=== PATIENT | female | born 1955 | race Hispanic/Latino ===

== ENCOUNTER 2017-09-15 05:47 | Day surgery (SDC) | payer MEDICAID ==
[~2017-09-15] VITALS: Ht 149.9 cm; Wt 75.7 kg
[~2017-09-15 05:47] MED LIST: LOSA1TAB42 PO; TRAM50TA4 PO
[2017-09-15] MEDS ORDERED: SODIUM CHLORIDE 0.9% 1000ML 1,000 ML IV ONE (05:59)
[2017-09-15 06:45] VITALS: BP 125/77
[2017-10-16] MEDS ORDERED: DICY10CA13 PO (15:51)
== END 2017-09-15 09:23 ==
LOC: DAH 05:47 → ENDO 05:47
PROVIDERS: ATTEND Internal Medicine
DX: K21.9 Gastro-esophageal reflux disease without esophagitis (principal); K29.60 Other gastritis without bleeding; K57.30 Diverticulosis of large intestine without perforation or abscess without bleeding; Z86.010 Personal history of colon polyps; I10 Essential (primary) hypertension; E11.9 Type 2 diabetes mellitus without complications; Z98.890 Other specified postprocedural states; Z90.710 Acquired absence of both cervix and uterus; Z82.49 Family history of ischemic heart disease and other diseases of the circulatory system; Z68.33 Body mass index [BMI] 33.0-33.9, adult
CPT/HCPCS: 43239; 82948; 88305; 88342; A4606; J7030

== ENCOUNTER 2017-10-18 06:51 | Day surgery (SDC) | payer MEDICAID ==
[~2017-10-18] VITALS: Ht 152.4 cm; Wt 75.3 kg
[~2017-10-18 06:51] MED LIST changes: +DICY10CA13 PO; +SODIUM CHLORIDE 0.9% 1000ML 1,000 ML IV ONE
[2017-10-18 07:25] VITALS: BP 147/73
[2017-10-18] MEDS ORDERED: PROPOFOL 10 MG/ML 20ML VIAL IV ONE (08:15)
== END 2017-10-18 09:04 ==
LOC: DAH 06:51
PROVIDERS: ATTEND Internal Medicine Gastroenterology
DX: D12.3 Benign neoplasm of transverse colon (principal); K63.5 Polyp of colon; K57.30 Diverticulosis of large intestine without perforation or abscess without bleeding; K21.9 Gastro-esophageal reflux disease without esophagitis; I10 Essential (primary) hypertension; Z86.010 Personal history of colon polyps; E11.9 Type 2 diabetes mellitus without complications; Z98.890 Other specified postprocedural states; Z90.710 Acquired absence of both cervix and uterus; Z68.33 Body mass index [BMI] 33.0-33.9, adult
CPT/HCPCS: 45380; 45385; 82948 ×2; 88305; A4606; J2704; J7030

== ENCOUNTER → 2019-10-15 | Outpatient (CLI) | payer MEDICAID ==
[~2019-10-15] MED LIST changes: -SODIUM CHLORIDE 0.9% 1000ML 1,000 ML IV ONE
== END | disposition home or self-care (01) ==
LOC: SHCH 09:37
PROVIDERS: ATTEND Internal Medicine Cardiovascular Disease
DX: R07.9 Chest pain, unspecified (principal)
CPT/HCPCS: 93306

== ENCOUNTER → 2020-03-10 | Outpatient (CLI) | payer MEDICAID | END | disposition home or self-care (01) | LOC: OIH 12:51 | PROVIDERS: ATTEND Family Medicine | DX: S39.92XA Unspecified injury of lower back, initial encounter (principal); M25.78 Osteophyte, vertebrae; X58.XXXA Exposure to other specified factors, initial encounter; Y93.89 Activity, other specified; Y92.89 Other specified places as the place of occurrence of the external cause; Y99.8 Other external cause status | CPT/HCPCS: 72100; 72220 ==

== ENCOUNTER → 2020-08-21 | Outpatient (CLI) | payer MEDICAID | END | disposition home or self-care (01) | LOC: SLP 19:57 | PROVIDERS: ATTEND Internal Medicine Cardiovascular Disease | DX: G47.33 Obstructive sleep apnea (adult) (pediatric) (principal); R00.1 Bradycardia, unspecified; R07.9 Chest pain, unspecified | CPT/HCPCS: 95810 ==

== ENCOUNTER → 2020-09-15 | Outpatient (CLI) | payer OTHER | END | disposition home or self-care (01) | LOC: RAH 12:42 | PROVIDERS: ATTEND Internal Medicine Cardiovascular Disease | DX: Z13.6 Encounter for screening for cardiovascular disorders (principal); I51.5 Myocardial degeneration | CPT/HCPCS: 75571 ==

== ENCOUNTER → 2020-11-03 | Outpatient (CLI) | payer MEDICAID | END | disposition home or self-care (01) | LOC: SLP 20:42 | PROVIDERS: ATTEND Internal Medicine Cardiovascular Disease | DX: G47.33 Obstructive sleep apnea (adult) (pediatric) (principal); R00.1 Bradycardia, unspecified; R07.9 Chest pain, unspecified | CPT/HCPCS: 95811 ==

== ENCOUNTER → 2021-01-27 | Outpatient (CLI) | payer MEDICAID | END | disposition home or self-care (01) | LOC: RAH 10:24 | PROVIDERS: ATTEND Internal Medicine Gastroenterology | DX: R10.10 Upper abdominal pain, unspecified (principal); R68.81 Early satiety; R11.0 Nausea | CPT/HCPCS: 78264; A9541 ==

== ENCOUNTER → 2022-04-04 | Outpatient (CLI) | payer MEDICAID ==
[~2022-04-04] VITALS: Ht 152.4 cm; Wt 78.5 kg
[~2022-04-04] MED LIST changes: +REGADENOSON 0.4 MG/5 ML PF SYG IVP SCH
== END | disposition home or self-care (01) ==
LOC: OIH 08:20
PROVIDERS: ATTEND Internal Medicine Cardiovascular Disease
DX: I25.119 Atherosclerotic heart disease of native coronary artery with unspecified angina pectoris (principal); R06.00 Dyspnea, unspecified
CPT/HCPCS: 78452; 96374; 93017; J2785; A9500 ×2

== ENCOUNTER → 2023-06-15 | Outpatient (CLI) | payer MEDICARE, MEDICAID ==
[~2023-06-15] MED LIST changes: +DICY-20 PO; -DICY10CA13 PO; -REGADENOSON 0.4 MG/5 ML PF SYG IVP SCH
== END | disposition home or self-care (01) ==
LOC: RAH 10:37
PROVIDERS: ATTEND Internal Medicine Gastroenterology
DX: R10.10 Upper abdominal pain, unspecified (principal); R11.0 Nausea; R68.81 Early satiety
CPT/HCPCS: 78264; A9541

== ENCOUNTER → 2024-04-09 | Outpatient (CLI) | payer MEDICARE ==
[~2024-04-09] MED LIST changes: -DICY-20 PO; +DICY10CA2 PO
== END | disposition home or self-care (01) ==
LOC: RAH 14:39
PROVIDERS: ATTEND Internal Medicine
DX: R59.1 Generalized enlarged lymph nodes (principal); E03.9 Hypothyroidism, unspecified
CPT/HCPCS: 76536

== ENCOUNTER → 2024-04-10 | Outpatient (CLI) | payer MEDICARE | END | disposition home or self-care (01) | LOC: RAH 12:33 | PROVIDERS: ATTEND Student in an Organized Health Care Education/Training Program | DX: K43.9 Ventral hernia without obstruction or gangrene (principal); I70.90 Unspecified atherosclerosis; M47.815 Spondylosis without myelopathy or radiculopathy, thoracolumbar region | CPT/HCPCS: 74176 ==

== ENCOUNTER → 2024-07-18 | Outpatient (CLI) | payer MEDICARE ==
--- NOTE | 2024-07-18 13:55 | HMCIMG ---
US SOFT TISSUE UPPER BACK REASON: benign lipomatous neoplasm of skin COMPARISON: None TECHNIQUE: Limited ultrasound was performed in the right upper back at the site of palpable abnormality. FINDINGS: There is a well-circumscribed 1.1 x 4.2 x 4.8 cm subcutaneous mass. Sonographic appearance is typical of a lipoma. Exam is otherwise unremarkable. IMPRESSION: 1. Mass in the left upper back has sonographic appearance typical of a lipoma.
--- NOTE | 2024-07-18 15:17 | HMCIMG ---
ANKLE 2VWS RT REASON: ANKLE PAIN RIGHT TECHNIQUE: 2 views were obtained. FINDINGS: There is been previous fusion of the tibiotalar joint. There are hardware pins in the talus and calcaneus. Tarsal bones appear intact. There is marked osteoarthritis of the tibiotalar joint space. There are no fractures. Soft tissues appear unremarkable. IMPRESSION: 1. Previous surgical fusion of the talus and calcaneus. 2. 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
== END | disposition home or self-care (01) ==
LOC: RAH 13:00
PROVIDERS: ATTEND Internal Medicine
DX: M19.071 Primary osteoarthritis, right ankle and foot (principal); D17.1 Benign lipomatous neoplasm of skin and subcutaneous tissue of trunk; M25.571 Pain in right ankle and joints of right foot; G14 Postpolio syndrome; M25.871 Other specified joint disorders, right ankle and foot; Z98.890 Other specified postprocedural states; R22.2 Localized swelling, mass and lump, trunk
CPT/HCPCS: 73600; 76604

== ENCOUNTER → 2025-03-18 | Outpatient (CLI) | payer MEDICARE ==
[~2025-03-18] MED LIST changes: +DICY-20 PO; -DICY10CA2 PO; +IOHEXOL 350 MG/ML 100ML INFUS..BTL IV ONE
--- NOTE | 2025-03-21 09:10 | CARDIOLOGY ---
RAD REPORT: CORNARY CT ANGIO RADIOLOGY REPORT: CORONARY CT ANGIOGRAPHY DATE: Mar 21, 2025 QUALITY: Excellent CLINICAL HISTORY AND INDICATION: [ chest pain ] TECHNIQUE: After obtaining a preliminary [facility] image, contrast imaging performed on an [employer] [id number] scanner. A dedicated, limited window, coronary imaging protocol was used, with single breath-hold, retrospective ECG gating, and automated arrhythmia rejection. 100 cc of low osmolar contrast agent: Omnipaque 350 was delivered via a 18-gauge IV catheter in the right antecubital fossa, using a power injector and followed by 60 cc of normal saline bolus as a chaser. Collimated images were reformatted at 0.5 mm intervals, and sent to an offline independent workstation for interpretation, using 3D anatomic reconstructions: Curved multiplanar reconstructions, maximum intensity projections, and multiplanar imaging. No metoprolol was administered prior to scanning due to low baseline heart rate. No SL nitroglycerin was given. CORONARY ARTERY DESCRIPTIONS: The coronary arteries arise in normal position. Left main coronary artery: Normal caliber vessel that trifurcates into the LAD, ramus and LCx. No stenosis. Left anterior descending coronary artery: Normal caliber vessel and gives rise to diagonal and septal branches. There is calcified plaque in the proximal LAD with 20-30% stenosis. Ramus intermedius artery: Normal caliber, no stenosis. Left circumflex coronary artery: Normal caliber, nondominant and gives rise to a large OM branch. No stenosis. Right coronary artery: Large, dominant vessel giving rise to the PL and PDA branches. No stenosis. CAD-RADs: 2, mild non-obstructive CAD. Thoracic Aorta: Normal diameter. Lindsey Avalos MD Cardiovascular Disease [facility] LINDSEY AVALOS MD Mar 21, 2025 09:10
== END | disposition home or self-care (01) ==
LOC: RAH 07:57
PROVIDERS: ATTEND Internal Medicine Cardiovascular Disease
DX: I25.10 Atherosclerotic heart disease of native coronary artery without angina pectoris (principal); R06.02 Shortness of breath
CPT/HCPCS: 75574; Q9967; J3490